=== PATIENT | female | born 1975 | race Caucasian/White ===

== ENCOUNTER 2017-08-09 07:33 | Emergency (ER) | payer BC ==
[~2017-08-09] VITALS: Ht 165.1 cm; Wt 74.8 kg
[~2017-08-09 07:33] MED LIST: BENADRYL25 MG PO; DILAUDID2 MG PO; HYDROCODON-ACE1 EA11 PO; SEPTRA DS TABL1 EACH PO
[2017-08-09] MEDS ORDERED: CITALOPRAM HBR20 MG PO (07:52)
[2017-08-09] MEDS ORDERED: ONDANSETRON ODT8 MG PO (08:59)
== END 2017-08-09 09:24 | disposition home or self-care (01) ==
LOC: ED 07:33
DX: R11.2 Nausea with vomiting, unspecified (principal); R51 Headache; Z88.5 Allergy status to narcotic agent; Z79.899 Other long term (current) drug therapy
CPT/HCPCS: 80053; 82150; 83690; 84703; 85025; 96361; 96374; 96375; 99283; G0480; J1200; J1885; J2060; J2765; J7030

== ENCOUNTER 2018-10-14 11:51 | Observation (INO) | payer OTHER ==
[~2018-10-14] VITALS: Ht 165.1 cm; Wt 76.7 kg
[~2018-10-14 11:51] MED LIST changes: +CITALOPRAM HBR20 MG PO; +ONDANSETRON ODT8 MG PO
--- NOTE | 2018-10-14 18:36 | NUR ---
10/14/18 1836 Dill,Amber Fox 1730: PATIENT C/O PAIN. MEDICATED WITH IV FENTANYL. DR. FRAZIER AT BEDSIDE SPEAKING WITH PATIENT. O2 MASK REMOVED. PATIENT ON ROOM AIR. IV POTASSIUM REPLACEMENT INFUSION FROM ER RESTARTED. 1736: PATIENT CONTINUES TO C/O PAIN. RATES PAIN 8/10. MEDICATED WITH IV FENTANYL. 174: PATIENT'S PAIN STILL 8/10. MEDICATED WITH IV FENTANYL. PATIENT TRIED ICE CHIPS, THEN BECAME NAUSEATED. MEDICATED WITH IV ZOFRAN. 1800: PATIENT RATES PAIN 8/10. MEDICATED WITH IV FENTANYL. NAUSEA RESOLVED. TOLERATING ICE CHIPS. 181: PATIENT'S STATES PAIN DOWN TO 5/10. TRANSFERRED TO ROOM 115 ON M/S FLOOR. REPORT GIVEN TO M/S RN.
--- NOTE | 2018-10-14 18:47 | NUR ---
PATIENT ARRIVED FROM SURGERY AT 1835, ADMITTED TO OBSERVATION. 0.5MG OF IV DILAUDID GIVEN FOR 7/10 ABD PAIN, REPORTED 5/10 15 MINUTES LATER. X3 ABD SCOPE SITES INTACT WITH GUAZE AND TAPE, CDI. SPOUSE IN ROOM WITH PATIENT. PATIENT SIPPING ON WATER, SCD'S ARE ON, DENIES OTHER NEEDS AT THIS TIME.
--- NOTE | 2018-10-14 19:39 | NUR ---
PT IS SLEEPING.
--- NOTE | 2018-10-14 20:59 | NUR ---
PATIENT GIVEN 1MG IV DILADID FOR 8/10 ABD PAIN IV RUQ ABD.
--- NOTE | 2018-10-14 21:17 | NUR ---
MECHANIC FIELD SERVICE ROUNDING. PT RESTING IN BED. PRIMARY RN IN ROOM. PT TALKATIVE, DISCUSSING PLACE OF EMPLOYMENT WITH THIS HAND STEMMER, PT DENIES NEEDS AT THIS TIME.
--- NOTE | 2018-10-14 22:16 | NUR ---
PT WALKED TO BATHROOM. PT VISITING WITH MULE PACKER.
--- NOTE | 2018-10-14 22:20 | NUR ---
PATIENT UP TO THE BATHROOM AGAIN AND PAIN HAD DROPPED TO A 4/10, NOW 8/10 AGAIN AFTER WALKING.
--- NOTE | 2018-10-14 23:20 | NUR ---
PATIENT JUST RETURNED FROM WALKING TO THE BATHROOM AND HER PAIN HAD GONE DOWN TO A 2/10 , BUT BACK TO 8/10 AFTER WALKING TO THE BATHROOM AND BACK.
--- NOTE | 2018-10-14 23:50 | NUR ---
PATIENT RESTING QUIETLY, EYES CLOSED, RESPIRATIONS REGUULAR AND EVEN AT 18. DAUGHTER AT BEDSIDE AND LIGHTS TURNED DOWN.
--- NOTE | 2018-10-15 00:46 | NUR ---
PATIENT'S PAIN HAS DECREASED TO 3/10 AND SHE IS COMFORTABLE AT THIS TIME AND DOES NOT WANT ANY MORE PAIN MEDS AT THIS TIME.
--- NOTE | 2018-10-15 02:18 | NUR ---
PATIENT UP TO THE BATHROOM AGAIN AND PAIN IN THE RUQ ABD 02/22. 2 PO VICODIN GIVEN. 2 CUPS OF JELLO GIVEN. ICE WATER AND ICE BAG REFILLED. AND I+O PUT IN THE COMPUTER.
--- NOTE | 2018-10-15 03:57 | NUR ---
PATIENT UP TO THE BATHROOM AND VOIDED 900MLS AND BACK TO BED. PT OK WITH PAIN 11/23. NEW IV BAG HUNG.
--- NOTE | 2018-10-15 05:31 | NUR ---
PATIENT HAS SLEPT AN HOUR HERE AND THERE THROUGHT THE NIGHT PER PATIENT'S REPORT. PATIENT STARTED OUT WITH RUQ ABD PAIN 6/10 AND GOT 1MG IV DILAUDID FOR IT. PATIENT HAD SOME NAUSEA ALSO THE FIRST PART OF THE SHIFT AND GOT 12.5MG IV PHENERGAN IN 20MLS NS SIVP, WHICH RELIEVED THE NAUSEA AND NOCKED THE PAIN DOWN TO 4/10. PATIENT THE GOT UP WITH 1PSBA AND AMBULATED TO THE BATHROOM AND BACK VOIDING 600MLS, 1ST POST-OP VOID. GETTING BACK IN BED PATIENT'S PAIN JUMPED TO 8/10 AND ANOTHER 1MG IV DILAUDID GIVEN AND PAIN WENT DOWN TO A 2/10. PATIENT SLEPT AWHILE, BUT UPON HER NEXT TRIP TO THE RESTROOM PAIN WHEN BACK TO 8/10 AND WE DECIDED TO USE THE NORCO 2 TABS WHICH DECREASED PAIN TO 3/10. AGAIN WHEN GETTING UP PAIN 8/10 AND 2 MORE NORCO GIVEN AND PAIN HAS NOT INCREASED PAST 4/10 THE REST OF THE SHIFT SO FAR AND PATIENT PLANS TO STICK TO ORAL MEDS SO SHE CAN TRY TO GET HOME SOONER. BOTH AC IV'S ARE WNL. D5LR REMAINS TO RUN AT 100MLS/HR. DAUGHTER HAS BEEN AT BED SIDE ALL NIGHT. ALL THREE LAP SITES ARE CDI.
--- NOTE | 2018-10-15 06:18 | CONS ---
[facility] [address] [place], [place] [address] Signed DATE OF CONSULTATION: 10/14/2018 CHIEF COMPLAINT: Right lower quadrant abdominal pain. 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 She is very busy working for our [employer] and helping with our local basketball tournament. Earlier today, she developed significant right lower quadrant abdominal pain with nausea. She came to the emergency room for evaluation. White count was normal, but she certainly was tender in the right lower quadrant. Beta-hCG was negative. A CT scan of abdomen and pelvis was performed and the appendix is headed down into the right pelvis, but there was some mild haziness around the appendix. The appendix then appeared to be significantly inflamed. She was given some pain medication earlier. When it wore off, her pain returned. Consequently, I have been asked to see her as a general surgeon on-call. PAST MEDICAL HISTORY: None. PAST SURGICAL HISTORY: Cholecystectomy and D and C. SOCIAL HISTORY: She does not smoke. She has a drink once in a while. She is to Gera at [phone], and her sister is Grazyna Tierney at [phone]. Caesar Ospina is her primary care provider. She prefers the [facility]. 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 FAMILY HISTORY: Mom and dad are healthy. Her siblings are healthy. REVIEW OF SYSTEMS: She had 10 systems reviewed and she is quite healthy. She did remind me I performed her laparoscopic cholecystectomy a few years ago. ALLERGIES: Morphine causes significant vomiting. MEDICATIONS: None. PHYSICAL EXAMINATION: Electronically Signed By: LILIANA FRAZIER MD 10/15/18 0618 PATIENT NAME: ELLE TIERNEY CONSULTATION DATE OF : 77 REPORT #: [id number] PHYSICIAN: LILIANA FRAZIER MD PCP: CAESAR OSPINA REPORT IS CONFIDENTIAL AND NOT TO BE RELEASED WITHOUT AUTHORIZATION [facility] [address] [place], [place] [address] Signed VITAL SIGNS: Her blood pressure 118/75, her heart rate is 85, her respiratory rate is 18, and temperature 97.8 degrees. She is 100% on room air. She is 5 feet 5 inches and 76 kg. GENERAL: Elle is a 43-year-old female lying supine semi-recumbent in her ER bed. Her is with her at the bedside along with the nurse, Kia. Elle does not appear systemically ill or toxic. LUNGS: Clear to auscultation bilaterally. HEART: Regular rate and rhythm. ABDOMEN: Tender in the right lower quadrant. LABORATORY DATA: Her white blood count is 9.6, neutrophils 44, hemoglobin is 13. Potassium slightly low at 3.0, BUN 13, creatinine 0.8, glucose 141, total bilirubin slightly up at 1.7, AST 16, ALT 12, and alkaline phosphatase 41, albumin is 4.1. Beta-hCG negative. The CT scan is reviewed per myself along with the report. We can see the appendix headed into the right iliac fossa with just some mild haziness around it. Appendix does not appear significantly dilated or thickened. ASSESSMENT AND PLAN: Elle is a 43-year-old female, who presents with what appears to be early onset appendicitis. We are giving her some IV fluids now and correcting her potassium. She is going to be given Rocephin and Flagyl along with some Pepcid and subcutaneous heparin. We are planning to take her to the operating room here shortly. I reviewed with Elle the location and function of the appendix. We have discussed laparoscopic versus open appendectomy. She understands expected intraop and postop course. She said she is anxious to get back to helping with our local basketball tournament. There is risk to the surgery including, but not limited to bleeding, infection, scarring, change in contour of the skin, damage to bowel, appendiceal stump leak, postoperative intraabdominal abscess, incisional hernias, and other unforeseen comorbidities. She and her have expressed understanding, would like to proceed. Liliana Frazier MD ALB/MODL /[id number] cc: Liliana Frazier MD Electronically Signed By: LILIANA FRAZIER MD 10/15/18 0618 PATIENT NAME: ELLE TIERNEY CONSULTATION DATE OF : 77 REPORT #: [id number] PHYSICIAN: LILIANA FRAZIER MD PCP: CAESAR OSPINA REPORT IS CONFIDENTIAL AND NOT TO BE RELEASED WITHOUT AUTHORIZATION [address] [address] Signed LUIS ENRIQUE Haile Copies: LILIANA FRAZIER MD, WADE R FNP ~ Electronically Signed By: LILIANA FRAZIER MD 10/15/18 0618 PATIENT NAME: ELLE TIERNEY EBENEZER CONSULTATION DATE OF : 77 REPORT #: [id number] PHYSICIAN: LILIANA FRAZIER MD PCP: CAESAR OSPINA REPORT IS CONFIDENTIAL AND NOT TO BE RELEASED WITHOUT AUTHORIZATION
--- NOTE | 2018-10-15 06:18 | OR ---
[facility] [address] [place], [place] [address] Signed DATE OF OPERATION: 10/14/2018 SURGEON: Liliana Frazier MD PREOPERATIVE DIAGNOSIS: Acute appendicitis. POSTOPERATIVE DIAGNOSIS: Acute inflamed appendicitis. PROCEDURE PERFORMED: Laparoscopic appendectomy. ESTIMATED BLOOD LOSS: None. FINDINGS: Elle had acute inflamed early appendicitis. 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 Earlier today, she developed right lower quadrant abdominal pain with some nausea and also some pain in her back. She came to emergency room for evaluation. She was tender in the right lower quadrant, but the white count was normal. Beta-hCG was negative. She underwent a CT scan of the abdomen and pelvis and she had some mild periappendiceal inflammatory haziness concerning for early appendicitis. I was asked to see her as a general surgeon on-call. In the meantime, her pain medication had wore off and it was clear, she had tenderness in the right lower quadrant directly over that appendix. I had a long discussion with Elle and her regarding the location and function of the appendix. We discussed laparoscopic versus open appendectomy. We discussed the expected intraop and postop course. We discussed the risks including, but not limited to bleeding, infection, scarring, change in contour of the skin, damage to bowel, appendiceal stump leak, postoperative intraabdominal abscess, incisional hernias, and other unforeseen comorbidities. She had expressed understanding and wished to proceed. PROCEDURE NOTE: Elle was taken into our operating room and placed in a supine position under general endotracheal tube anesthesia. She was given preoperative antibiotics along with subcutaneous heparin. SCDs were utilized. Eagle catheter was inserted with return of Electronically Signed By: LILIANA FRAZIER MD 10/15/18 0618 PATIENT NAME: ELLE TIERNEY OPERATIVE REPORT DATE OF : 77 REPORT #: [id number] PHYSICIAN: LILIANA FRAZIER MD PCP: CAESAR OSPINA REPORT IS CONFIDENTIAL AND NOT TO BE RELEASED WITHOUT AUTHORIZATION [facility] [address] [place], [place] [address] Signed clear yellow urine. She was then prepped and draped in the usual sterile fashion. We used her previous supraumbilical transverse incision and we opened that up sharply. The Zion trocar was placed under direct visualization without difficulty. We then used our 5 mm suprapubic trocar as well as our 12 mm right subcostal trocar as well. Pictures were taken throughout for photodocumentation. The appendix was grasped and elevated into the operative field. It was clear that the base of the appendix was fine, but the distal one-half was thickened, injected, and mildly inflamed. The base of the appendix was cleared with the help of the cautery and divided from the cecum with our linear stapler. We then divided the mesoappendix with the help of a vascular load on the mesoappendix. Hemostasis was excellent. We placed the appendix into an EndoCatch bag. The appendix was taken out through the right subcostal trocar site. We used our laparoscopic suturing device to pass 0 Vicryl suture on either side of the fascia of the subxiphoid trocar site. This was tied down to close this fascia primarily. After this, all the gas was allowed to escape and the remaining trocars were removed. We closed the supraumbilical fascial defect with interrupted simple and [id number] 0 Vicryl sutures. Local anesthetic was copiously injected into all trocar sites. Each trocar site was irrigated and suctioned out until clear. The skin and dermis of each trocar site were closed with interrupted 3-0 subcuticular Monocryl sutures. Dry gauze and tape were applied to all incisions. Elle's Eagle catheter was removed while she was asleep without difficulty. She was then awakened from her anesthesia, extubated in the OR, and taken to recovery room in stable condition. Liliana Frazier MD ALB/MODL /[id number] cc: MD Caesar Staton FNP Copies: LILIANA FRAZIER MD Electronically Signed By: LILIANA FRAZIER MD 10/15/18 0618 PATIENT NAME: ELLE TIERNEY OPERATIVE REPORT DATE OF : 77 REPORT #: [id number] PHYSICIAN: LILIANA FRAZIER MD PCP: CAESAR OSPINA REPORT IS CONFIDENTIAL AND NOT TO BE RELEASED WITHOUT AUTHORIZATION [address] [address] Signed CAESAR OSPINA ~ Electronically Signed By: LILIANA FRAZIER MD 10/15/18 0618 PATIENT NAME: ELLE TIERNEY OPERATIVE REPORT DATE OF : 77 REPORT #: [id number] PHYSICIAN: LILIANA FRAZIER MD PCP: CAESAR OSPINA REPORT IS CONFIDENTIAL AND NOT TO BE RELEASED WITHOUT AUTHORIZATION
--- NOTE | 2018-10-15 07:36 | NUR ---
0700: Bedside report recieved from [facility]. The pt appears in no distress and denies any problems at this time. Call daniels within reach.
--- NOTE | 2018-10-15 09:05 | NUR ---
IV RATE CHANGED TO 75ML/HR ORDERED. PT'S ABD DRESSINGS REMOVED, THE 3 SITES ARE ALL INTACT WITH NO S/S OF INFECTION. PT STATES HER PAIN IS WELL CONTROLLED AT REST RATING IT AT A 4 AT THIS TIME. PT ATE A REGULAR BREAKFAST AND TOLERATED IT WELL WITH NO NAUSEA.
--- NOTE | 2018-10-15 09:36 | NUR ---
Pt states her abd pain increased to a 6/10 after getting up and using the BR. Pt medicated for pain at this time.
--- NOTE | 2018-10-15 10:36 | NUR ---
Pt sleeping when I arrived to her room. She awoke and states her pain is now a 2/10.
--- NOTE | 2018-10-15 11:14 | NUR ---
PATIENT WAS UP AND WALKING, SHE TOLERATED IT WELL, NO PAIN AT THE TIME, PAIN MEDS WERE TAKEN PRIOR TO WALK.
--- NOTE | 2018-10-15 12:43 | NUR ---
Pt resting in her bed stating her pain is acceptable at a 4/10 at this time. Pt states she has no nausea after eating lunch and she tolerated a walk in the halls prior.
--- NOTE | 2018-10-15 13:13 | NUR ---
PATIENT WAS UP AND AMBULATING, SHE DID A LAP AND A HALF, HER OXYGEN WAS 89 WHEN WE RETURNED TO THE ROOM AFTER THE WALK. SHE VERBALIZED THAT SHE WAS LIGHT HEADED, AND WE PAUSED DURING THE WALK.
--- NOTE | 2018-10-15 14:09 | NUR ---
PT WAS SLEEPING AND AWOKE TO VOICE. SHE STATES HER PAIN IS ACCEPTABLE RATING IT AT A 5. INCSION SITES ON HER ABD APPEAR HEALTHY AND CLOSED WITH SOME BRUISING NOTED AROUND EACH SITE.
--- NOTE | 2018-10-15 15:18 | NUR ---
Pt states her abd is a 610 and was medicated as ordered at this time. Pt denies any other problems.
--- NOTE | 2018-10-15 16:21 | NUR ---
Pt's pain level is now a 7/10, she was medicated as ordered.
--- NOTE | 2018-10-15 16:37 | NUR ---
Elle states, "my pain is much better" she now rates her abd at a 4/10. Elle denies any other problems.
--- NOTE | 2018-10-15 17:55 | NUR ---
Pt states her pain remains at a 4/10 which is acceptable to her.
--- NOTE | 2018-10-15 18:10 | NUR ---
Pt got up and walked in the halls today and did well. Dressings removed on 3 abd incision sites, all closed and appear healthy with some bruising noted around each site. Pain has been a bit of an issue this afternoon but is now down to a 4/10 with several doses of pain medication. Pt has not yet had a BM, her bowel sounds are active. Pt denies any abd distention, bowels are active.
--- NOTE | 2018-10-15 19:44 | NUR ---
PATIENT EATING COOKIES AND WATCHING TV IN BED. PAIN 11/23 RUQ ABD. PATIENT REQUESTING TO GET A SHOWER. CALL LIGHT IN REACH.
--- NOTE | 2018-10-15 20:40 | NUR ---
PATIENT GOT UP AND WALKED A FEW LAPS AROUND THE UNIT AFTER GETTING 2 NORCO FOR 6/10 RUQ ABD PAIN. PATIENT'S BED LINENS CHANGED. ICE BAG REFILL, ICE WATER REFILLED AND PATIENT IS NOW TAKIING A SHOWER WITH DAUGHTERS ASSISTANCE. IV LOCKED AND WRAPPED FOR SHOWER. PATIENT EATING WELL.
--- NOTE | 2018-10-15 22:00 | NUR ---
Pt has towels and blanket down on her bathroom floor. I was going to clean them up but pt requested that I leave them there so she does not slip on the wet floor.
--- NOTE | 2018-10-15 22:27 | NUR ---
PATIENT JUST WANTED TO TAKE SOME TYLENOL FOR 5/10 PAIN AFTER HER SHOWER. PATIENT HAS ALREADY HAD 650MG TYLENOL WITH HER NORCO AND IS NOTE DUE UNTIL MIDNIGHT. PATIENT SAID SHE WOULD BE OK AND DID NOT WANT TO TAKE THE DILAUDID IV. SHE WALL CALL IF SHE CHANGES HER MIND. CALL LIGHT IN REACH.
--- NOTE | 2018-10-15 22:43 | NUR ---
TRAFFIC SERGEANT ROUNDING NOTE. PT RESTING IN BED WATCHING TV. PT DENIES NEEDS AT THIS TIME. PT'S DAUGHTER RESTING ON COUCH IN ROOM. CALL LIGHT IN PT REACH.
--- NOTE | 2018-10-16 00:06 | NUR ---
PATIENT IS HAVING 3/10 RUQ ABD PAIN. GIVEN 650MG PO TYLENOL AND FILLED PATIENT'S WATER GLASS. PATIENT HAS NO OTHER NEEDS AT THIS TIME AND CALL LIGHT IS IN REACH.
--- NOTE | 2018-10-16 02:14 | NUR ---
PATIENT RESTING QUIETLY ON LEFT SIDE, RESPIRATIONS REGULAR AND EVEN AT 16. CALL LIGHT IN REACH.
--- NOTE | 2018-10-16 04:06 | NUR ---
PATIENT RESTING QUIETLY ON HERRIGHT SIDE, RESPIRATIONS REGULAR AND EVEN AT 16, CALL LIGHT IN REACH.
--- NOTE | 2018-10-16 04:59 | NUR ---
PATIENT WALKED THE THE UNIT A FEW TIMES WITH HER DAUGHTER AT THE BEGINING OF THE SHIFT AND HAD 2 NORCO FOR PAIN. PATIENT ALSO TOOK A SHOWER BEFORE SHE WENT TO BED. PATIENT SLEPT FOR AWHILE AND THEN ASKED FOR JUST 2 TYLENOL FOR 3/10 RUQ ABD PAIN AT MIDNIGHT AND SHE HAS BEEN RESTING QUIETLY, EYES CLOSED, RESPIRATIONS REGULAR AND EVEN UP TO THIS TIME WITH NO MORE COMPLAINTS OF PAIN.
--- NOTE | 2018-10-16 07:12 | NUR ---
0655 bedside report received from [facility] RAM[facility]. Pt resting in her bed stating her pain is a 4/10 which is acceptable to her and she denies any other problems at this time. Call daniels and personal items within reach.
--- NOTE | 2018-10-16 07:25 | NUR ---
The pt's iv in her right ac has failed and was leaking and was DC'd by the charge nurse. The plan is to dc the pt and a verbal order was received by Dr Gomes to leave the iv out.
--- NOTE | 2018-10-16 07:30 | NUR ---
Pt was seen by Dr Gomes and the plan is for the pt to be DC today. Pt has no complaints at this time.
[2018-10-16] MEDS ORDERED: NORCO 5-325 TA1 EACH PO (08:20)
--- NOTE | 2018-10-16 08:27 | NUR ---
Pt states her pain has increased to a 6 and she was medicated as ordered.
--- NOTE | 2018-10-17 11:37 | DS ---
[facility] [address] [place], [place] [address] Signed ADMISSION DATE: 10/14/2018 DISCHARGE DATE: 10/16/2018 FINAL DIAGNOSIS: Early acute inflamed appendicitis. PROCEDURE: Laparoscopic appendectomy. 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 She had developed right lower quadrant abdominal pain with nausea and pain into her right flank. She came to the local emergency room for evaluation. White count was normal. She was tender in the right lower quadrant. Beta-hCG was negative. CT scan of the abdomen and pelvis was performed. She had some mild periappendiceal haziness. I was asked to see her in the emergency room. I had met with Elle and her and I have reviewed her above findings. She was clearly tender in the right lower quadrant. We decided to take her to surgery. HOSPITAL COURSE: She was taken to the operating room that same day for her uncomplicated laparoscopic appendectomy. Her intraoperative and postoperative course have been uncomplicated. At this point, she has been up walking and eating and her pain is well controlled with [place]. Her abdominal exam is benign. She had to have a bowel movement. Due to her progress then, we are going to be discharging her to home. DISCHARGE PLANS AND MEDICATIONS: Elle will be discharged home with a prescription for [place] 5/325 mg 1 to 2 tablets p.o. q.4 hours p.r.n. postoperative pain. We will dispense #35 tablets with no refills. We have asked her not to do any heavy pushing, pulling, or lifting over 20 pounds. However, she can perform her activities of daily living including walking up and down stairs and showering and bathing as usual. She can use ice over the incisions as needed for pain. She can resume driving and go back to work here in a few days when she is feeling better. She will come to my office in about 7 to 10 days for followup. If she does not have a bowel movement in the next day or two, she will go to the store and buy an [id number] laxative. Electronically Signed By: LILIANA FRAZIER MD 10/17/18 1137 PATIENT NAME: ELLE TIERNEY DISCHARGE SUMMARY DATE OF : 77 REPORT #: [id number] PHYSICIAN: LILIANA FRAZIER MD PCP: CAESAR OSPINA REPORT IS CONFIDENTIAL AND NOT TO BE RELEASED WITHOUT AUTHORIZATION [facility] [address] [place], [place] [address] Signed MD JARVIS Staton/LIZ /[id number] cc: MD Caesar Staton FNP Copies: LILIANA FRAZIER MD, WADE R FNP ~ Electronically Signed By: LILIANA FRAZIER MD 10/17/18 1137 PATIENT NAME: ELLE TIERNEY DISCHARGE SUMMARY DATE OF : 77 REPORT #: [id number] PHYSICIAN: LILIANA FRAZIER MD PCP: CAESAR OSPINA REPORT IS CONFIDENTIAL AND NOT TO BE RELEASED WITHOUT AUTHORIZATION
== END 2018-10-16 09:15 | disposition home or self-care (01) ==
LOC: ED 11:51 → MS 11:53
PROVIDERS: ADMIT Colon & Rectal Surgery
PROC: 0DTJ4ZZ Resection of Appendix, Percutaneous Endoscopic Approach (ICD-10-PCS; principal; 2018-10-14 15:48)
DX: K35.80 Unspecified acute appendicitis (principal); Z90.49 Acquired absence of other specified parts of digestive tract; Z88.5 Allergy status to narcotic agent
CPT/HCPCS: 00840; 74176; 80053; 81001; 84703; 85025; 96361; 96365; 96372; 96375; 96376; 99285-25; G0378; J0330; J0696; J1100; J1170; J1644; J1885; J2405; J2550; J2704; J3010; J3480; J7120

== ENCOUNTER 2022-04-06 17:38 | Emergency (ER) | payer OTHER ==
[~2022-04-06] VITALS: Ht 165.1 cm; Wt 76.7 kg
[~2022-04-06 17:38] MED LIST changes: +NORCO 5-325 TA1 EACH PO
== END 2022-04-06 19:07 | disposition short-term general hospital (02) ==
LOC: ED 17:38
DX: T18.9XXA Foreign body of alimentary tract, part unspecified, initial encounter (principal); Z88.5 Allergy status to narcotic agent; X58.XXXA Exposure to other specified factors, initial encounter
CPT/HCPCS: 71046; 87502; U0003